=== PATIENT | female | born 1965 | race African-American/Black ===

== ENCOUNTER 2016-11-08 19:40 | Emergency (ER) | payer OTHER ==
[~2016-11-08] VITALS: Ht 157.5 cm; Wt 160.0 kg
[~2016-11-08 19:40] MED LIST: ACET1TAB14 PO; ALBU18HF2 IH; ALBU6.7H INH; AMLO2.5T45 PO; ASPI-1035 PO; ASPI325T2 PO; B CO1TAB4 PO; BACL-141 PO; BECL8.7A5 IH; BENZ200C44 PO; CARI350T PO; COLC0.6T66 PO; CYAN10009 PO; FLUT16SP15 BOTHNSTRLS; FOLI-43 PO; FURO40TA5 PO; HYDR-519 PO; LISI5TAB PO; LORA10TA7 PO; LOSA50TA20 PO; MELO-58 PO; METF500T4 PO; METH500T6 PO; METHYLPREDNISOLONE; MOME13HF2 INH; MONT10TA24 PO; NITR0.4T3 SL; OMEP20CA10 PO; PANT40TA4 PO; PRAV20TA57 PO; THEO400T PO; TIZA4TAB4 PO; [UNRECOGNIZED DRUG - CODE] TP; metolazone PO
[2016-11-08] MEDS ORDERED: MORPHINE SULFATE 4 MG/ML CPJ (NOT FOR IM USE) IV STA (21:41)
[2016-11-08] MEDS ORDERED: SODIUM CHLORIDE 0.9% 1,000 ML IV ONE (21:41)
[2016-11-08] MEDS ORDERED: ONDANSETRON HCL 4MG/2ML VIAL IV STA (21:41)
[2016-11-08] MEDS ORDERED: NITROGLYCERIN OINT 1GM/INCH UDPKT TD ONE (21:45)
[2016-11-08] MEDS ORDERED: ASPIRIN 81MG TABLET PO ONE (21:45)
[2016-11-08 22:14] LABS: INR 1.1; PROTHROMBIN TIME 11.3 sec
[2016-11-08 22:19] LABS: BASOPHILS % 0.7 % (0.0-2.0); EOSINOPHILS % 0.5 % (0.0-5.0); HEMATOCRIT. 36.5 % (36.0-48.0); HEMOGLOBIN. 12.2 g/dL (12.0-16.0); LYMPHOCYTES % 35.2 % (20.0-50.0); MEAN CORPUSCULAR HEMOGLOBIN 29.7 pg (28.0-32.0); MEAN CORPUSCULAR HGB CONC 33.5 g/dL (31.0-37.0); MEAN CORPUSCULAR VOLUME 88.6 fL (81.0-99.0); MEAN PLATELET VOLUME 8.3 fl (7.4-10.4); MONOCYTES % 9.1 % (2.0-8.0); NEUTROPHILS % 54.5 % (40.0-76.0); PLATELET 267 x1000/uL (130-400); RED BLOOD CELL COUNT 4.12 mill/uL (4.2-5.4); RED CELL DISTRIBUTION WIDTH 14.1 % (11.6-14.6); WHITE BLOOD COUNT 7.8 x1000/uL (4.5-11.0)
[2016-11-08 22:23] LABS: ALANINE AMINOTRANSFERASE 34 IU/L (13-61); ALBUMIN 3.6 g/dL (3.4-5.0); ANION GAP 13; CALCIUM 9.6 mg/dL (8.5-10.1); CARBON DIOXIDE 35 mEq/L (21-32); CHLORIDE 96 mEq/L (98-107); ETHANOL BLOOD < 10 mg/dL; INDEX HEMOLYSI 1 (1-3); INDEX ICTERIC 1 (1-4); INDEX LIPEMIC 1 (1-3); LIPASE 113 IU/L (73-393); NT PRO B-TYPE NATRIURETIC PEP 142 pg/mL (5-125); TROPONIN I < 0.02 ng/mL (0.00-0.04); UREA NITROGEN BLOOD 17 mg/dL (7-21); eGFR > 60 mL/min (>60)
[2016-11-08 22:30] LABS: CLARITY URINE CLOUDY (CLEAR); COLOR URINE YELLOW (YELLOW); GLUCOSE URINE NEGATIVE (NEGATIVE); KETONES URINE TRACE (NEGATIVE); LEUKOCYTE ESTERASE URINE 3+ (NEGATIVE); NITRITE URINE NEGATIVE (NEGATIVE); OCCULT BLOOD URINE NEGATIVE (NEGATIVE); PROTEIN URINE NEGATIVE (NEGATIVE); SPECIFIC GRAVITY URINE 1.023 (1.005-1.030)
[2016-11-08 22:50] LABS: *AMPHETAMINES SCREEN URINE NEGATIVE (NEGATIVE); *BARBITURATES SCREEN URINE NEGATIVE (NEGATIVE); *BENZODIAZEPINES SCREEN URINE NEGATIVE (NEGATIVE); *COCAINE SCREEN URINE NEGATIVE (NEGATIVE); CANNABINOID URINE SCREEN PRESUMTIVE POSITIVE (NEGATIVE); ECSTASY MDMA SCREEN URINE NEGATIVE (NEGATIVE); METHADONE URINE SCREEN NEGATIVE (NEGATIVE); OPIATES URINE SCREEN PRESUMTIVE POSITIVE (NEGATIVE); PHENCYCLIDINE URINE SCREEN NEGATIVE (NEGATIVE)
[2016-11-08 22:52] LABS: SQUAMOUS EPITHELIAL CELL URINE 2+ /lpf (RARE/1+)
[2016-11-08 22:53] LABS: BACTERIA URINE 2+; RBC URINE 0-2 /hpf (0-2); WBC URINE 15-25 /hpf (0-2)
[2016-11-09] MEDS ORDERED: CEFTRIAXONE 1 G PREMIX 50 ML IV ONE (00:45)
[2016-11-09] MEDS ORDERED: POTASSIUM BICARB/CIT ACID 25 MEQ TABLET.EFF PO ONE (00:45)
[2016-11-09 01:16] VITALS: BP 107/65
== END 2016-11-09 02:52 | disposition home or self-care (01) ==
LOC: ER 19:42
DX: R07.89 Other chest pain (principal); J02.9 Acute pharyngitis, unspecified; N39.0 Urinary tract infection, site not specified; E87.6 Hypokalemia; R41.82 Altered mental status, unspecified; E11.9 Type 2 diabetes mellitus without complications; R94.31 Abnormal electrocardiogram [ECG] [EKG]; I49.1 Atrial premature depolarization; I10 Essential (primary) hypertension; K57.30 Diverticulosis of large intestine without perforation or abscess without bleeding; J44.9 Chronic obstructive pulmonary disease, unspecified; M10.9 Gout, unspecified; J45.909 Unspecified asthma, uncomplicated; Z88.0 Allergy status to penicillin; Z88.2 Allergy status to sulfonamides; I25.2 Old myocardial infarction; E66.01 Morbid (severe) obesity due to excess calories; Z68.44 Body mass index [BMI] 60.0-69.9, adult; Z86.73 Personal history of transient ischemic attack (TIA), and cerebral infarction without residual deficits; Z90.710 Acquired absence of both cervix and uterus; I25.10 Atherosclerotic heart disease of native coronary artery without angina pectoris; Z98.61 Coronary angioplasty status; Z79.82 Long term (current) use of aspirin; Z79.899 Other long term (current) drug therapy
CPT/HCPCS: 36415; 70450; 71010; 74176; 80053; 80305; 81001; 83605; 83690; 83880; 84484; 85025; 85610; 93005; 96361; 96365; 96375; 99285; G0482; J0696; J2270; J2405; J7030; Z7610

== ENCOUNTER 2018-04-08 07:59 | Day surgery (SDC) | payer MEDICARE, OTHER ==
[~2018-04-08] VITALS: Ht 157.5 cm; Wt 142.9 kg
[~2018-04-08 07:59] MED LIST changes: +ALLO300T2 PO; -ASPI-1035 PO; +ASPI-1158 PO; -ASPI325T2 PO; -BENZ200C44 PO; +BENZ200C52 PO; -CARI350T PO; +DIPH25TA23 PO; +FERR325T6 PO; +GABA-531 PO; +HYDR25TA PO; -LISI5TAB PO; +MELO-106 PO; -MELO-58 PO; -METF500T4 PO; +METF500T6 PO; -METHYLPREDNISOLONE; +MORP30CA16 PO; -NITR0.4T3 SL; +NITR0.4T49 SL; -OMEP20CA10 PO; +POTA20TA82 PO; +S350 PO; +SULI200T4 PO
[2018-04-08 08:55] LABS: HEMATOCRIT 42.5 % (36.0-48.0); HEMOGLOBIN 14.2 g/dL (12.0-16.0)
[2018-04-08] MEDS ORDERED: SODIUM CHLORIDE 0.9% 1,000 ML IV ONE (12:31)
[2018-04-08] MEDS ORDERED: HYDROMORPHONE HCL/PF 2MG/ML CPJ IV PRN (12:45)
[2018-04-08] MEDS ORDERED: ONDANSETRON HCL 4MG/2ML INJ IV PRN (12:45)
[2018-04-08] MEDS ORDERED: IBUPROFEN 600MG TABLET PO NR (12:45)
[2018-04-08] MEDS ORDERED: PROPOFOL 200MG/20ML VIAL IV ONE ×2 (12:51→13:09)
[2018-04-08] MEDS ORDERED: MIDAZOLAM HCL 5 MG/5 ML VIAL ONE (12:51)
[2018-04-08] MEDS ORDERED: LIDOCAINE HCL/PF 1% 10 MG/ML 5ML VIAL ONE (12:52)
== END 2018-04-08 15:30 | disposition home or self-care (01) ==
LOC: OR 07:59
PROVIDERS: ATTEND Internal Medicine Gastroenterology
DX: K52.9 Noninfective gastroenteritis and colitis, unspecified (principal); K64.8 Other hemorrhoids; E11.9 Type 2 diabetes mellitus without complications; J45.909 Unspecified asthma, uncomplicated; J44.9 Chronic obstructive pulmonary disease, unspecified; I11.0 Hypertensive heart disease with heart failure; I50.9 Heart failure, unspecified; Z85.43 Personal history of malignant neoplasm of ovary; Z90.710 Acquired absence of both cervix and uterus; Z79.899 Other long term (current) drug therapy; Z98.890 Other specified postprocedural states
CPT/HCPCS: 36415; 45380; 82962; 85014; 85018; 88305; 93005; J2250; J3490; J7120; J2704